=== PATIENT | male | born 1970 | race Caucasian/White ===

== ENCOUNTER 2017-03-16 11:16 | Inpatient (IN) | payer MEDICAID ==
[~2017-03-16] VITALS: Ht 170.2 cm; Wt 72.9 kg
[2017-03-16] MEDS ORDERED: SODIUM CHLORIDE 0.9% 1,000 ML IV ONE (12:45)
[2017-03-16] MEDS ORDERED: PIPERACILLIN-TAZOB 3.375GM 100 ML IV ONE (12:45)
[2017-03-16] MEDS ORDERED: KETOROLAC TROMETH 30 MG/ML 1ML VIAL IV ONE (12:45)
[2017-03-16] MEDS ORDERED: VANCOMYCIN 1GM/250ML D5W 250 ML IV ONE (12:45)
[2017-03-16 13:30] LABS: Basophils # (auto) 0.1 uL; Basophils % (auto) 0.4 % (0.0-2.0); CONDITION Y; Eosinophils # (auto) 0.1 uL; Eosinophils % (auto) 0.9 % (0.0-7.0); Hematocrit 39.7 % (41.0-53.0); Hemoglobin 13.6 g/dL (13.5-17.5); Lymphocytes # (auto) 1.7 uL; Lymphocytes % (auto) 12.7 % (10.0-50.0); Mean Corpuscular Hgb Conc. 34.3 g/dL (32.0-36.0); Mean Corpuscular Volume 90.1 fL (80.0-100.0); Mean Platelet Volume 7.4 fL (7.4-10.4); Monocytes # (auto) 0.9 uL; Monocytes % (auto) 7.1 % (0.0-12.0); Neutrophils # (auto) 10.4 uL; Neutrophils % (auto) 78.9 % (37.0-80.0); Platelet Count (auto) 380 10^3/uL (140-450); Red Cell Distribution Width 12.9 % (11.6-16.0); White Blood Cell 13.1 10^3/uL (4.4-10.8)
[2017-03-16 13:45] LABS: Albumin 3.9 g/dL (3.4-5.0); Anion Gap 12 (5-15); Aspartate Aminotransferase 46 U/L (15-37); BUN/Creatinine Ratio 14.2; Blood Urea Nitrogen 27 mg/dL (7-18); Calcium 9.2 mg/dL (8.5-10.1); Carbon Dioxide 24 mmol/L (21-32); Chloride 103 mmol/L (98-107); GFR African American 50 mL/min; GFR Non-African American 41 mL/min; Glucose 101 mg/dL (74-106); Potassium 3.6 mmol/L (3.5-5.1); Sodium 139 mmol/L (136-145)
[2017-03-16 13:48] LABS: Alkaline Phosphatase 53 U/L (45-117); Bilirubin, Total 0.6 mg/dL (0.2-1.0); Total Protein 7.3 g/dL (6.4-8.2)
[2017-03-16] MEDS ORDERED: TEMAZEPAM 15 MG CAP PO PRN (14:30)
[2017-03-16] MEDS ORDERED: NITROGLYCERIN 0.4 MG SL TAB SL PRN (14:30)
[2017-03-16] MEDS ORDERED: MORPHINE SULF INJ 2 MG/ML SYRINGE 1ML IV PRN (14:30)
[2017-03-16] MEDS ORDERED: ACETAMINOPHEN 500 MG TAB PO PRN (14:30)
[2017-03-16] MEDS ORDERED: LORazepam 0.5 MG TAB PO PRN (14:30)
[2017-03-16] MEDS ORDERED: PROMETHAZINE HCL 25 MG/ML 1ML IV PRN (14:30)
[2017-03-16] MEDS ORDERED: LACTULOSE 20Gm/30ML SOLN PO PRN (14:30)
[2017-03-16 15:04] LABS: INR 0.95 (0.9-1.15); Partial Thromboplastin Time 31.2 sec (22.64-33.71); Prothrombin Time 10.3 sec (9.37-12.3)
[2017-03-16] MEDS: SODIUM CHLORIDE 0.9% 1,000 ML IV SCH ×2 (15:59→23:27)
[2017-03-16 18:39] LABS: Urine Bilirubin Negative (Negative); Urine Blood TRACE /uL (Negative); Urine Ca Oxalate Crystal FEW (None Seen); Urine Color Yellow (Yellow); Urine Glucose Normal (Normal); Urine Hyaline Cast MANY /lpf (0 - 2); Urine Ketone Negative (Negative); Urine Mucus FEW (None Seen); Urine Nitrite Negative (Negative); Urine RBC 36 /hpf (0 - 3); Urine Squamous Epithelial Cell FEW /hpf (<5)
[2017-03-16 20:00] VITALS: BP 142/92
[2017-03-16 20:10] VITALS: BP 142/92
[2017-03-16] MEDS: HYDROcodone-ACET 5/325MG TAB PO PRN (20:15)
[2017-03-16] MEDS: CLINDAMYCIN 600MG IV 50 ML IV SCH (21:13)
[2017-03-17] VITALS (7 sets, daily range): BP systolic 122–136; BP diastolic 75–92
[2017-03-17] MEDS: MORPHINE SULF INJ 2 MG/ML SYRINGE 1ML IV PRN ×3 (05:13→13:33)
[2017-03-17] MEDS: CLINDAMYCIN 600MG IV 50 ML IV SCH ×3 (05:13→21:15)
[2017-03-17] MEDS: SODIUM CHLORIDE 0.9% 1,000 ML IV SCH ×3 (05:51→19:38)
[2017-03-17 06:17] LABS: Basophils # (auto) 0 uL; Basophils % (auto) 0.5 % (0.0-2.0); CONDITION AutoValidated; Eosinophils # (auto) 0.3 uL; Eosinophils % (auto) 4.4 % (0.0-7.0); Hematocrit 36.5 % (41.0-53.0); Hemoglobin 12.4 g/dL (13.5-17.5); Lymphocytes % (auto) 29.3 % (10.0-50.0); Mean Corpuscular Hemoglobin 30.9 pg (28.0-32.0); Mean Corpuscular Volume 90.9 fL (80.0-100.0); Mean Platelet Volume 7.6 fL (7.4-10.4); Monocytes # (auto) 0.6 uL; Monocytes % (auto) 8.4 % (0.0-12.0); Neutrophils % (auto) 57.4 % (37.0-80.0); Platelet Count (auto) 342 10^3/uL (140-450)
[2017-03-17 06:32] LABS: Albumin 3.1 g/dL (3.4-5.0); Bilirubin, Total 0.4 mg/dL (0.2-1.0); Calcium 8.4 mg/dL (8.5-10.1); Potassium 3.8 mmol/L (3.5-5.1); Total Protein 5.9 g/dL (6.4-8.2)
[2017-03-17] MEDS: cefTRIAXone 1GM/50ML D5W 50 ML IV SCH (10:07)
[2017-03-17] MEDS: HYDROcodone-ACET 5/325MG TAB PO PRN (21:14)
[2017-03-18] MEDS: SODIUM CHLORIDE 0.9% 1,000 ML IV SCH (03:11)
[2017-03-18 05:02] VITALS: BP 144/97
[2017-03-18] MEDS: CLINDAMYCIN 600MG IV 50 ML IV SCH (05:32)
[2017-03-18 07:03] LABS: Basophils # (auto) 0 uL; Basophils % (auto) 0.4 % (0.0-2.0); CONDITION AutoValidated; Eosinophils # (auto) 0.3 uL; Eosinophils % (auto) 3.5 % (0.0-7.0); Hematocrit 36.2 % (41.0-53.0); Hemoglobin 12.2 g/dL (13.5-17.5); Lymphocytes # (auto) 1.7 uL; Lymphocytes % (auto) 22.6 % (10.0-50.0); Mean Corpuscular Hemoglobin 30.7 pg (28.0-32.0); Mean Corpuscular Hgb Conc. 33.6 g/dL (32.0-36.0); Mean Corpuscular Volume 91.3 fL (80.0-100.0); Mean Platelet Volume 7.6 fL (7.4-10.4); Monocytes # (auto) 0.4 uL; Monocytes % (auto) 5.8 % (0.0-12.0); Neutrophils % (auto) 67.7 % (37.0-80.0); Platelet Count (auto) 344 10^3/uL (140-450); Red Cell Distribution Width 12.9 % (11.6-16.0); White Blood Cell 7.4 10^3/uL (4.4-10.8)
[2017-03-18 07:40] LABS: BUN/Creatinine Ratio 13.8; Calcium 8.2 mg/dL (8.5-10.1); Potassium 3.9 mmol/L (3.5-5.1)
[2017-03-18] MEDS: cefTRIAXone 1GM/50ML D5W 50 ML IV SCH (09:00)
[2017-03-18 09:02] VITALS: BP 144/97
[2017-03-18 09:20] VITALS: BP 144/86
== END 2017-03-18 09:45 | disposition home or self-care (01) | DRG 460 ==
LOC: ER 11:16 → TELE 11:17 → TELE-E-ADS 17:34 → TELE-EAST 18:36
PROVIDERS: ADMIT Internal Medicine; ATTEND Internal Medicine
DX: N17.9 Acute kidney failure, unspecified (principal); E44.0 Moderate protein-calorie malnutrition; L03.115 Cellulitis of right lower limb; N18.9 Chronic kidney disease, unspecified; Z68.25 Body mass index [BMI] 25.0-25.9, adult; E86.0 Dehydration; K59.00 Constipation, unspecified; Z59.0 Homelessness; Z83.3 Family history of diabetes mellitus; Z88.8 Allergy status to other drugs, medicaments and biological substances; Z71.89 Other specified counseling; L03.116 Cellulitis of left lower limb; R10.9 Unspecified abdominal pain; S90.822A Blister (nonthermal), left foot, initial encounter; S90.821A Blister (nonthermal), right foot, initial encounter; X58.XXXA Exposure to other specified factors, initial encounter; Y93.89 Activity, other specified; Y92.89 Other specified places as the place of occurrence of the external cause; Y99.8 Other external cause status
CPT/HCPCS: 36415; 73630; 74176; 80048; 80053; 80307; 80320; 81001; 85025; 85610; 85652; 85730; 87040; 96361; 96365; 96367; J0696; J2543; J3490

== ENCOUNTER 2017-07-20 15:12 | Emergency (ER) | payer MEDICAID ==
[~2017-07-20] VITALS: Ht 170.2 cm; Wt 68.0 kg
[2017-07-20] MEDS ORDERED: cefTRIAXone SOD 1,000 MG VL IM ONE (17:00)
[2017-07-20] MEDS ORDERED: KETOROLAC TROMETH 60MG/2ML VIAL IM ONE (17:00)
[2017-07-20 17:13] VITALS: BP 138/88
== END 2017-07-20 17:03 | disposition home or self-care (01) ==
LOC: ER 15:23
DX: S90.425A Blister (nonthermal), left lesser toe(s), initial encounter (principal); F12.10 Cannabis abuse, uncomplicated; Z59.0 Homelessness; Z88.8 Allergy status to other drugs, medicaments and biological substances; S90.424A Blister (nonthermal), right lesser toe(s), initial encounter; X58.XXXA Exposure to other specified factors, initial encounter; Y93.89 Activity, other specified; Y99.8 Other external cause status; Y92.89 Other specified places as the place of occurrence of the external cause
CPT/HCPCS: 96372; 99284; J0696; J1885

== ENCOUNTER 2017-12-18 03:30 | Emergency (ER) | payer MEDICAID ==
[~2017-12-18] VITALS: Ht 170.2 cm; Wt 67.1 kg
[2017-12-18] MEDS ORDERED: KETOROLAC TROMETH 60MG/2ML VIAL IM ONE (07:45)
[2017-12-18 07:47] LABS: Basophils # (auto) 0.1 uL; Basophils % (auto) 0.9 % (0.0-2.0); Eosinophils # (auto) 0.2 uL; Eosinophils % (auto) 2.3 % (0.0-7.0); Hematocrit 36.4 % (41.0-53.0); Hemoglobin 12.5 g/dL (13.5-17.5); Lymphocytes # (auto) 1.8 uL; Lymphocytes % (auto) 20.7 % (10.0-50.0); Mean Corpuscular Hemoglobin 31.4 pg (28.0-32.0); Mean Corpuscular Hgb Conc. 34.3 g/dL (32.0-36.0); Mean Corpuscular Volume 91.4 fL (80.0-100.0); Monocytes # (auto) 0.7 uL; Monocytes % (auto) 8.6 % (0.0-12.0); Neutrophils # (auto) 5.8 uL; Neutrophils % (auto) 67.5 % (37.0-80.0); Nucleated Red Blood Cells % 0.1 %; Platelet Count (auto) 396 10^3/uL (140-450); Red Blood Cells 3.98 10^6/uL (4.5-5.90); Red Cell Distribution Width 13.9 % (11.8-14.3); White Blood Cell 8.5 10^3/uL (4.4-10.8)
[2017-12-18 08:12] LABS: Albumin 3.5 g/dL (3.4-5.0); BUN/Creatinine Ratio 16.7; Bilirubin, Total 0.3 mg/dL (0.2-1.0); Calcium 8.3 mg/dL (8.5-10.1); Potassium 3.6 mmol/L (3.5-5.1)
[2017-12-18 09:11] VITALS: BP 138/93
== END 2017-12-18 09:25 | disposition home or self-care (01) ==
LOC: ER 03:33
DX: S86.911A Strain of unspecified muscle(s) and tendon(s) at lower leg level, right leg, initial encounter (principal); X58.XXXA Exposure to other specified factors, initial encounter; Y93.89 Activity, other specified; Y92.89 Other specified places as the place of occurrence of the external cause; Y99.8 Other external cause status; F17.210 Nicotine dependence, cigarettes, uncomplicated; F12.10 Cannabis abuse, uncomplicated; Z59.0 Homelessness; Z88.7 Allergy status to serum and vaccine
CPT/HCPCS: 36415; 80053; 85025; 93971; 96372; 99285; J1885

== ENCOUNTER 2019-01-05 04:42 | Emergency (ER) | payer MEDICAID ==
[~2019-01-05] VITALS: Ht 172.7 cm; Wt 74.8 kg
[2019-01-05 05:56] LABS: Basophils # (auto) 0 uL; Eosinophils # (auto) 0.2 uL; Hemoglobin 8.6 g/dL (13.5-17.5); Monocytes # (auto) 0.7 uL; Monocytes % (auto) 10.7 % (0.0-12.0); Neutrophils # (auto) 4.8 uL; White Blood Cell 6.8 10^3/uL (4.4-10.8)
[2019-01-05 05:58] LABS: Basophils % (auto) 0.6 % (0.0-2.0); Eosinophils % (auto) 3.3 % (0.0-7.0); Hematocrit 25.3 % (41.0-53.0); Lymphocytes % (auto) 15.3 % (10.0-50.0); Mean Corpuscular Hemoglobin 30.5 pg (28.0-32.0); Mean Corpuscular Hgb Conc. 33.9 g/dL (32.0-36.0); Mean Corpuscular Volume 90.1 fL (80.0-100.0); Neutrophils % (auto) 70.1 % (37.0-80.0); Nucleated Red Blood Cells % 0.1 %; Platelet Count (auto) 645 10^3/uL (140-450); Red Blood Cells 2.81 10^6/uL (4.5-5.90); Red Cell Distribution Width 15.6 % (11.8-14.3)
[2019-01-05 06:13] LABS: Albumin 2.9 g/dL (3.4-5.0); Anion Gap 6 (5-15); Blood Urea Nitrogen 8 mg/dL (7-18); Calcium 8.4 mg/dL (8.5-10.1); Carbon Dioxide 25 mmol/L (21-32); Chloride 106 mmol/L (98-107); Glucose 93 mg/dL (74-106); Potassium 3.3 mmol/L (3.5-5.1); Sodium 137 mmol/L (136-145)
[2019-01-05 06:17] LABS: Alanine Aminotransferase 18 U/L (16-61); Alkaline Phosphatase 268 U/L (45-117); Aspartate Aminotransferase 10 U/L (15-37); BUN/Creatinine Ratio 15.7; Bilirubin, Total 0.4 mg/dL (0.2-1.0); Blood Alcohol < 3.0 mg/dL (0-5); GFR African American 225 mL/min; GFR Non-African American 186 mL/min; Total Protein 6.2 g/dL (6.4-8.2)
[2019-01-05 08:21] LABS: Urine Bacteria NONE SEEN /hpf (None Seen); Urine Blood Negative /uL (Negative); Urine Specific Gravity 1.004 (1.001-1.035); Urine WBC <1 /hpf (0 - 3)
[2019-01-05 08:31] LABS: Alcohol, Urine < 3.0 mg/dL (0-5); Amphetamine Screen, Urine NEGATIVE (NEGATIVE); Barbiturate Scree,Urine NEGATIVE (NEGATIVE); Benzodiazephine Screen, Urine NEGATIVE (NEGATIVE); Cannabinoid Screen, Urine POSITIVE (NEGATIVE); Cocaine Screen, Urine NEGATIVE (NEGATIVE); Opiate Scree,Urine NEGATIVE (NEGATIVE); Phencyclidine Screen, Urine NEGATIVE (NEGATIVE)
[2019-01-05 10:15] VITALS: BP 152/57
== END 2019-01-05 10:52 | disposition home or self-care (01) ==
LOC: ER 04:42
DX: S42.201A Unspecified fracture of upper end of right humerus, initial encounter for closed fracture (principal); S46.811A Strain of other muscles, fascia and tendons at shoulder and upper arm level, right arm, initial encounter; F17.210 Nicotine dependence, cigarettes, uncomplicated; F12.10 Cannabis abuse, uncomplicated; F15.10 Other stimulant abuse, uncomplicated; Z59.0 Homelessness; V09.20XA Pedestrian injured in traffic accident involving unspecified motor vehicles, initial encounter; Y93.89 Activity, other specified; Y92.89 Other specified places as the place of occurrence of the external cause; Y99.8 Other external cause status
CPT/HCPCS: 29105; 36415; 73030; 73060; 73090; 73130; 80053; 80307; 80320; 81001; 85025; 93971

== ENCOUNTER 2020-08-10 21:26 | Inpatient (IN) | payer MEDICAID ==
[~2020-08-10] VITALS: Ht 175.3 cm; Wt 54.4 kg
[2020-08-10] MEDS ORDERED: ASPirin 81 mg TAB PO ONE (22:15)
[2020-08-10 23:02] LABS: Hematocrit 40.6 % (41.0-53.0); Red Cell Distribution Width 14.9 % (11.8-14.3)
[2020-08-10 23:04] LABS: Hemoglobin 13.4 g/dL (13.5-17.5); Mean Corpuscular Hgb Conc. 33.1 g/dL (32.0-36.0); Mean Corpuscular Volume 90.5 fL (80.0-100.0); Platelet Count (auto) 497 10^3/uL (140-450); Red Blood Cells 4.48 10^6/uL (4.5-5.90); White Blood Cell 10.3 10^3/uL (4.4-10.8)
[2020-08-10 23:07] LABS: Band Neutrophils % (manual) 0; Basophils % (manual) 0 (0.0-2.0); Blast Cells 0; Eosinophils % (manual) 0 (0-7); Metamyelocytes % 0; Myelocytes % 0; Promyelocytes % 0; Reactive Lymphocytes 0
[2020-08-10 23:19] LABS: Albumin 2.5 g/dL (3.4-5.0); BUN/Creatinine Ratio 18.1; Calcium 8.4 mg/dL (8.5-10.1); Magnesium 1.8 mg/dL (1.6-2.6)
[2020-08-10 23:24] LABS: Total Protein 6.3 g/dL (6.4-8.2)
[2020-08-10 23:30] LABS: INR 1.28 (0.9-1.15); Partial Thromboplastin Time 30.1 sec (23.0-31.2)
[2020-08-10] MEDS ORDERED: IOHEXOL 350 MG/ML 100ML IJ ONE (23:39)
[2020-08-10] MEDS ORDERED: VANCOMYCIN 1GM/250ML 250 ML IV ONE (23:45)
[2020-08-10] MEDS ORDERED: PIPERACILLIN-TAZOB 3.375GM 100 ML IV ONE (23:45)
[2020-08-11] VITALS (7 sets, daily range): BP systolic 95–140; BP diastolic 64–83
[2020-08-11 00:03] LABS: Lactic Acid w/Reflex 2.9 mmol/L (0.4-2.0)
[2020-08-11 00:56] LABS: Lymphocytes % (manual) 12 (10.0-50.0)
[2020-08-11 00:57] LABS: Monocytes % (manual) 5 (0-12)
[2020-08-11] MEDS ORDERED: NITROGLYCERIN 0.4 MG SL TAB SL PRN (04:15)
[2020-08-11] MEDS ORDERED: ONDANSETRON HCL 4 MG/2 ML VIAL IV PRN (04:15)
[2020-08-11] MEDS ORDERED: MORPHINE SULF INJ 2 MG/ML SYRINGE 1ML IV PRN (04:15)
[2020-08-11] MEDS ORDERED: ACETAMINOPHEN 325 MG TAB PO PRN (04:15)
[2020-08-11] MEDS ORDERED: TEMAZEPAM 15 MG CAP PO PRN (04:15)
[2020-08-11] MEDS: FUROSEMIDE 20 MG/2 ML VIAL IV SCH ×3 (04:37→18:00)
[2020-08-11 05:07] LABS: Amphetamine Screen, Urine POSITIVE (NEGATIVE); Barbiturate Scree,Urine NEGATIVE (NEGATIVE); Benzodiazephine Screen, Urine NEGATIVE (NEGATIVE); Cannabinoid Screen, Urine NEGATIVE (NEGATIVE); Cocaine Screen, Urine NEGATIVE (NEGATIVE); Opiate Scree,Urine NEGATIVE (NEGATIVE); Phencyclidine Screen, Urine NEGATIVE (NEGATIVE)
[2020-08-11 05:42] LABS: Urine Bacteria FEW /hpf (None Seen); Urine Blood Negative /uL (Negative); Urine Hyaline Cast MOD /lpf (0 - 2); Urine Mucus FEW (None Seen); Urine Specific Gravity > 1.050 (1.001-1.035); Urine WBC 1 /hpf (0 - 3)
[2020-08-11] MEDS ORDERED: ALBUTEROL SULF HFA 90MCG INH 200DOSE IN SCH (06:00)
--- NOTE | 2020-08-11 06:00 | NUR ---
Telemetry admit from ER RONNELL MONTENEGRO admitted to Telemetry unit after SBAR received. Patient oriented to TERRI LIRA, RN primary RN, unit, room, bed, and unit policies regarding patient care and visiting hours. Patient now on continuous telemetry monitoring, tele box #1 and telemetry reading on arrival to unit is [id number]. Patient placed on bedside oxygen, weighed by bedscale and encouraged to call if they need something. All questions and concerns addressed, patient verbalized understanding.
[2020-08-11] MEDS: FAMOTIDINE 20 MG TAB PO SCH ×2 (09:43→22:35)
[2020-08-11] MEDS: ASPirin 81 mg TAB PO SCH (09:43)
[2020-08-11] MEDS: ENOXAPARIN SOD 40 MG/0.4 ML SYRINGE SC SCH (09:45)
[2020-08-11] MEDS: CARVEDILOL 3.125 MG TAB PO SCH ×2 (09:45→22:34)
[2020-08-11] MEDS: LISINOPRIL 5 MG TAB PO SCH (10:00)
[2020-08-11] MEDS ORDERED: BUDESONIDE (INHALATION) 180 MCG IH IN SCH (10:00)
[2020-08-11] MEDS ORDERED: ZINC SULFATE 220mg CAP or TAB PO SCH (10:00)
[2020-08-11] MEDS ORDERED: ASCORBIC ACID 1,000 MG TAB PO SCH (10:00)
[2020-08-11] MEDS ORDERED: DOXYCYCLINE 100MG/250ML 250 ML IV SCH (10:00)
[2020-08-11] MEDS ORDERED: DexAMETHasone SOD PHOS 10MG/1ML VIAL INJ IV SCH (10:00)
[2020-08-11] MEDS ORDERED: CHOLECALCIFEROL (VITD3) 2,000 UNIT CAP PO SCH (10:00)
[2020-08-11 10:09] LABS: Magnesium 1.7 mg/dL (1.6-2.6)
[2020-08-11 10:18] LABS: CRP High Sensitivity 2.11 mg/dL (< 0.3)
--- NOTE | 2020-08-11 11:41 | NUR ---
at bedside MD Virgen at bedside aware of patient's status including VS, pt refused BP meds as ordered and refusing IV abx. Patient did not finish infusing IV abx as ordered because he states "is making him worse" and MD Virgen aware. Cont care
--- NOTE | 2020-08-11 11:57 | NUR ---
Assessment Patient is a 49-year-old male who is alert and oriented. Regarding social service consult for homeless. Patient states he is not homeless and lives home alone in the city of [place]. Patient states he can care for his own ADL's and functioned independently. Patient refused to answer any other questions. Addendum: 08/11/20 at 1205 by KRYS ZAVALA Amended: Links added.
--- NOTE | 2020-08-11 13:49 | NUR ---
Patient removing tele box multiple times. After multiple attempts to place it back, pt removed it completely and refuses to have it put back. Patient instructed regarding need for tele monitor including increased HR noted he verbalized understanding but continues to refuse yelling "you guys are fucking making things worse, I'm gona try something different". Tele monitor cleaned and will send back to satellite project site monitor. MD Virgen paged to notify, voicemail left. No acute distress or sob noted.
--- NOTE | 2020-08-11 14:00 | NUR ---
Tele monitor returned to ICU as patient continues to refuse to have it put back. MD Virgen paged to notify.
[2020-08-11] MEDS ORDERED: ALBUTEROL SULF 2.5 MG/0.5ML(0.5%) NEB SOLN NEB PRN (15:15)
--- NOTE | 2020-08-11 19:00 | NUR ---
Patient care endorsed to Yandy moralez. Patient removed IV, catheter noted intact and sitting on bedside table. No bleeding noted from site. No acute distress or sob noted. Patient PCR negative and will be transferred to room 223B.
--- NOTE | 2020-08-11 19:50 | NUR ---
Report/SBAR Report/SBAR given to nurse Velásquez. Nurse made aware that patient is without IV or telemonitor.
--- NOTE | 2020-08-11 19:59 | NUR ---
Patient Transferred Patient transferred via wheelchair with personal belongings. Patient tolerated well.
--- NOTE | 2020-08-11 20:00 | NUR ---
Patient arrived to room 223B Patient transported by wheelchair and ambulated to the bed. Patient is A&Ox4, respirations even and non-labored at this time. VS: T 97.9, GA 106, RR 19, SP02 99%, BP 100/83. Discussed POC with patient who verbalized understanding. Patient refused to change into a gown and wanted to wear his own clothes stating that he wanted to stay warm if he left the room. Gown left bedside at this time. Patient had removed his IV prior to his arrival to the room. Safety precautions in place, bed in lowest locked position with 2 side rails up, call light within reach.
--- NOTE | 2020-08-11 22:50 | NUR ---
Patient downstairs to smoke Advised patient of the risks and dangers to his medical condition and informed him of the hospital's policy. The patient read and signed the Informed Consent For Smoking AMA and stated that he was still going downstairs to smoke. Patient sat in a wheelchair and wheeled himself to the elevator and left the floor.
--- NOTE | 2020-08-11 23:10 | NUR ---
PT FOUND BY [facility] RESPIRATORY DEPARTMENT DOOR, TACHYPNEIC IN WHEELCHAIR. ASKED PT IS HE WAS OK HE STATED "NO, I WENT DOWN TO SMOKE". ASKED HIM WHERE HIS ROOM WAS LOCATED AT HE SAID "TWO SOMETHING". ASKED TO SEE PTS WRISTBAND, PT SHOWED ME AND THIS RT RECOGNIZED NAME AND WHEELED PT TO HIS ROOM. PT APPEARS SOB AND HAS PRN TXS, SUGGESTED PT TAKE ONE PT AGREED. COMMUNICATED PT FINDINGS TO TAYLOR ARIAS. MED NEB TX GIVEN WITHOUT ADVERSE REACTION. POX ON RA 93-94% HR IN 100S. RR 20S. WILL CONTINUE TO MONITOR.
--- NOTE | 2020-08-11 23:19 | NUR ---
RT bedside/patient returned to room Patient back to the floor, RT stated that she found him in the hallway unsure of his room number and breathing heavily. He was assisted back to his room and stated that he would not be going downstairs to smoke again.
[2020-08-12 03:01] VITALS: BP 107/72
--- NOTE | 2020-08-12 06:33 | NUR ---
IV insertion IV access obtained, via clean sterile technique by inserting 20 gauge catheter at right upper arm after 1 attempt. IV secured properly. No trauma to site. Patient tolerated well.
[2020-08-12] MEDS: FUROSEMIDE 20 MG/2 ML VIAL IV SCH ×2 (06:45→11:21)
--- NOTE | 2020-08-12 07:29 | NUR ---
Closing shift note Patient resting, respirations even and non-labored without s/s of distress at this time. Endorsed care to day shift RN.
[2020-08-12 07:32] LABS: Basophils # (auto) 0 10 ^3/uL (0-0.2); Basophils % (auto) 0.1 % (0.0-2.0); Eosinophils # (auto) 0 10 ^3/uL (0-0.8); Hematocrit 38.9 % (41.0-53.0); Hemoglobin 12.3 g/dL (13.5-17.5); Lymphocytes # (auto) 0.7 10 ^3/uL (0.4-5.4); Lymphocytes % (auto) 7.3 % (10.0-50.0); Mean Corpuscular Hemoglobin 28.8 pg (28.0-32.0); Mean Corpuscular Hgb Conc. 31.7 g/dL (32.0-36.0); Mean Corpuscular Volume 90.9 fL (80.0-100.0); Monocytes # (auto) 0.7 10 ^3/uL (0-1.3); Monocytes % (auto) 7.5 % (0.0-12.0); Neutrophils # (auto) 8.1 10 ^3/uL (1.6-8.6); Neutrophils % (auto) 85.1 % (37.0-80.0); Nucleated Red Blood Cells % 0.2 %; Platelet Count (auto) 423 10^3/uL (140-450); Red Blood Cells 4.28 10^6/uL (4.5-5.90); Red Cell Distribution Width 14.8 % (11.8-14.3); White Blood Cell 9.5 10^3/uL (4.4-10.8)
[2020-08-12 08:08] LABS: BUN/Creatinine Ratio 22.4; Calcium 8.1 mg/dL (8.5-10.1); Potassium 4.4 mmol/L (3.5-5.1)
[2020-08-12 09:00] VITALS: BP 111/79
[2020-08-12] MEDS ORDERED: levoFLOXacin 500 MG TAB PO SCH (10:00)
[2020-08-12] MEDS: ASPirin 81 mg TAB PO SCH (11:21)
[2020-08-12] MEDS: ENOXAPARIN SOD 40 MG/0.4 ML SYRINGE SC SCH (11:21)
[2020-08-12] MEDS: FAMOTIDINE 20 MG TAB PO SCH ×2 (11:21→22:23)
[2020-08-12] MEDS: LISINOPRIL 5 MG TAB PO SCH (11:22)
[2020-08-12] MEDS: CARVEDILOL 3.125 MG TAB PO SCH ×2 (11:23→22:22)
[2020-08-12] MEDS ORDERED: LISI-275 PO (11:24)
[2020-08-12] MEDS ORDERED: ALBUAER3 IN (11:24)
[2020-08-12] MEDS ORDERED: FURO1TAB33 PO (11:24)
[2020-08-12] MEDS ORDERED: LEVO-28 PO (11:24)
[2020-08-12] MEDS ORDERED: CAR3125T PO (11:24)
[2020-08-12] MEDS: MAGNESIUM SULFATE 1GM/100ML 100 ML IV SCH ×2 (12:00→13:00)
[2020-08-12 12:30] VITALS: BP 112/78
--- NOTE | 2020-08-12 15:08 | NUR ---
REFUSED IV PATIENT STATED "TAKE OUT MY IV I DONT WANT MEDICATION IN MY ARM". EXPLAINED THE NEED FOR AN IV WHILE IN THE HOSPITAL. PATIENT VERBALIZED UNDERSTANDING HOWEVER STILL REFUSED IV. IV removal IV DC'd with clean sterile technique, catheter fully intact. Pressure dressing applied to site. Patient tolerated well.
[2020-08-12 16:44] VITALS: BP 105/64
--- NOTE | 2020-08-12 19:14 | NUR ---
DISCHARGE TOMORROW AM ENDORSED TO NIGHT RN AM SHIFT RN FOR 08/13/20 P[address]TA[address] SR BRADY IN THE MORNING TO CLEAR THE PATIENT FOR DISCHARGE.
--- NOTE | 2020-08-12 19:30 | NUR ---
Opening Shift Note Assumed patient care from Day Shift RN. Patient is AOx4 and currently in the bathroom. Knocked on patient bathroom door and asked if everything is okay, patient responded "yes, I'm okay, I'm just going to the bathroom." Told patient I will be back in a few minutes to check on him and patient verbally answered "Ok." Patient told to call if he needs any help. Will continue to monitor.
--- NOTE | 2020-08-12 19:53 | NUR ---
Respiratory note: PT ASSESSED FOR PRN TX AT THIS TIME. HEART RATE 93. RESPIRATORY RATE 16. SPO2 98% ON ROOM AIR. BREATH SOUNDS CLEAR T/O. PT DENIES ANY RESPIRATORY DISTRESS AT THIS TIME. PT INSTRUCTED TO HAVE RESPIRATORY CALLED IF THEY FEEL SOB OR FEEL DIFFICULTY BREATHING.
--- NOTE | 2020-08-12 20:28 | NUR ---
AMA to Smoke Patient left unit via wheelchair to smoke at this time. Patient given a mask and taken to elevator.
[2020-08-12 22:00] VITALS: BP 94/62
[2020-08-13 05:00] VITALS: BP 80/61
[2020-08-13 05:18] VITALS: BP 88/61
[2020-08-13] MEDS: FUROSEMIDE 20 MG/2 ML VIAL IV SCH (06:00)
--- NOTE | 2020-08-13 06:11 | NUR ---
Patient Complains He is Not Feeling Well Upon entering patient's room, patient was moaning and saying, " I don't feel good, my stomach hurts and I haven't pooped in 4 days." I asked the patient if he has any other symptoms and he got agitated and said, " That delroy who came in and took my vitals woke me up and now my stomach hurts." He also said, " I'm still going to have breakfast." I educated patient that if his stomach hurts he may want to hold off on eating and I will talk to the doctor for further directions. Patient said, " I don't want to go home, I don't feel well." Will contact Dr. Kady Fournier.
--- NOTE | 2020-08-13 06:21 | NUR ---
Contacted [facility] No orders received at this time. Made aware that patient does not want to leave and is not "feeling good." Also, let exchange know patient refuses IV for any IV medications.
--- NOTE | 2020-08-13 06:52 | NUR ---
PT ASSESSED BY RT, PT HR 91 BPM, RR16, SPO2 95% ON RA, PT STATES HE HAS NO RESPIRATORY DISTRESS AT THIS TIME, PT BILATERAL BREATH SOUNDS ARE CLEAR, IF PT HAS ANY ACUTE CHANGE IN CONDITION RT WILL RESPOND WITH APPROPRIATE THERAPY
--- NOTE | 2020-08-13 07:29 | NUR ---
PAGED DR BRADY PER Elizabeth SANCHEZ'S NOTE FOR CLEARANCE FOR DISCHARGE TODAY.
[2020-08-13 09:00] VITALS: BP_SYST 94; BP_SYST 98; BP_DIAS 53; BP_DIAS 71
--- NOTE | 2020-08-13 09:42 | NUR ---
DISCHARGE INSTRUCTIONS GIVEN TO PATIENT. HE REFUSED TO LISTEN TO INSTRUCTIONS. MEDICATIONS GIVEN TO PATIENT THAT WERE FILLED AT [facility]. REQUESTING A BUS PASS. CALLED [employer] FOR BUS PASS.
== END 2020-08-13 10:00 | disposition home or self-care (01) | DRG 139 ==
LOC: EDBD 21:26 → ER 21:33 → TELE 21:34 → TELE-EAST 08-11 05:45 → TELE-CENTR 08-11 20:08
PROVIDERS: ADMIT Nurse Practitioner; ATTEND Internal Medicine
DX: J18.9 Pneumonia, unspecified organism (principal); E43 Unspecified severe protein-calorie malnutrition; I50.21 Acute systolic (congestive) heart failure; I11.0 Hypertensive heart disease with heart failure; I27.21 Secondary pulmonary arterial hypertension; Z20.828 Contact with and (suspected) exposure to other viral communicable diseases; I25.10 Atherosclerotic heart disease of native coronary artery without angina pectoris; K70.30 Alcoholic cirrhosis of liver without ascites; F17.210 Nicotine dependence, cigarettes, uncomplicated; F15.10 Other stimulant abuse, uncomplicated; F19.10 Other psychoactive substance abuse, uncomplicated; Z88.7 Allergy status to serum and vaccine; Z59.0 Homelessness; Z82.49 Family history of ischemic heart disease and other diseases of the circulatory system; Z83.3 Family history of diabetes mellitus; Z86.73 Personal history of transient ischemic attack (TIA), and cerebral infarction without residual deficits; Z91.19 Patient's noncompliance with other medical treatment and regimen
CPT/HCPCS: 36415; 71045; 71275; 80048; 80053; 80307; 81001; 82140; 82728; 83605; 83615; 83735; 83880; 84443; 84484; 85007; 85025; 85027; 85379; 85610; 85730; 86141; 87040; 87426; 93005; 93306; 94640; 96365; G0378; J1100; J2543; J3490

== ENCOUNTER 2020-08-14 18:20 | Inpatient (IN) | payer MEDICAID ==
[~2020-08-14] VITALS: Ht 170.2 cm; Wt 68.4 kg
[~2020-08-14 18:20] MED LIST: ALBUAER3 IN; CAR3125T PO; FURO1TAB33 PO; LEVO-28 PO; LISI-275 PO
[2020-08-14] MEDS ORDERED: FUROSEMIDE 40 MG/4 ML VIAL IV ONE (19:15)
[2020-08-14 20:23] LABS: Basophils # (auto) 0 10 ^3/uL (0-0.2); Basophils % (auto) 0.1 % (0.0-2.0); Eosinophils # (auto) 0 10 ^3/uL (0-0.8); Eosinophils % (auto) 0.3 % (0.0-7.0); Hematocrit 37.8 % (41.0-53.0); Lymphocytes # (auto) 1.1 10 ^3/uL (0.4-5.4); Lymphocytes % (auto) 11.5 % (10.0-50.0); Mean Corpuscular Hemoglobin 28.6 pg (28.0-32.0); Mean Corpuscular Hgb Conc. 31.8 g/dL (32.0-36.0); Monocytes # (auto) 0.7 10 ^3/uL (0-1.3); Monocytes % (auto) 7.3 % (0.0-12.0); Neutrophils # (auto) 7.6 10 ^3/uL (1.6-8.6); Neutrophils % (auto) 80.8 % (37.0-80.0); Platelet Count (auto) 438 10^3/uL (140-450); White Blood Cell 9.4 10^3/uL (4.4-10.8)
[2020-08-14 20:38] LABS: INR 1.26 (0.9-1.15); Partial Thromboplastin Time 32.4 sec (23.0-31.2)
[2020-08-14 20:39] LABS: Albumin 2.4 g/dL (3.4-5.0); BUN/Creatinine Ratio 26.7; Magnesium 1.7 mg/dL (1.6-2.6); Potassium 4.7 mmol/L (3.5-5.1)
[2020-08-14 20:44] LABS: Bilirubin, Total 0.6 mg/dL (0.2-1.0); Total Protein 6.2 g/dL (6.4-8.2)
[2020-08-14] MEDS ORDERED: PIPERACILLIN-TAZOB 3.375GM 100 ML IV ONE (21:30)
[2020-08-14] MEDS ORDERED: DexAMETHasone INJECTION 10 MG in D5W 5% 50 ML IV ONE (21:30)
[2020-08-14] MEDS ORDERED: DexAMETHasone SOD PHOS 10MG/1ML VIAL INJ ONE (21:48)
[2020-08-14 22:25] LABS: Urine WBC None Seen /hpf (0 - 3)
[2020-08-14 22:42] LABS: Urine Bacteria NONE SEEN /hpf (None Seen); Urine Blood Negative /uL (Negative); Urine Mucus FEW (None Seen)
[2020-08-14 22:59] LABS: Alcohol, Urine < 3.0 mg/dL (0-10); Amphetamine Screen, Urine POSITIVE (NEGATIVE); Barbiturate Scree,Urine NEGATIVE (NEGATIVE); Benzodiazephine Screen, Urine NEGATIVE (NEGATIVE); Cannabinoid Screen, Urine NEGATIVE (NEGATIVE); Cocaine Screen, Urine NEGATIVE (NEGATIVE); Opiate Scree,Urine NEGATIVE (NEGATIVE); Phencyclidine Screen, Urine NEGATIVE (NEGATIVE)
[2020-08-15] VITALS (7 sets, daily range): BP systolic 106–127; BP diastolic 66–85
[2020-08-15] MEDS ORDERED: ONDANSETRON HCL 4 MG/2 ML VIAL IV PRN
[2020-08-15] MEDS ORDERED: MORPHINE SULF INJ 2 MG/ML SYRINGE 1ML IV PRN
[2020-08-15] MEDS ORDERED: DOCUSATE SOD 100 MG CAP PO PRN
[2020-08-15] MEDS ORDERED: NITROGLYCERIN 0.4 MG SL TAB SL PRN
[2020-08-15] MEDS ORDERED: ACETAMINOPHEN 325 MG TAB PO PRN
[2020-08-15] MEDS ORDERED: LORazepam 2MG/ML-1ML VIAL ONE (01:08)
[2020-08-15] MEDS ORDERED: LORazepam 2MG/ML-1ML VIAL IV ONE (01:15)
[2020-08-15] MEDS: SODIUM CHLOR 0.9% PF (SALINE LOCK) 10ML VIAL/SYR IV SCH ×3 (05:38→21:29)
[2020-08-15] MEDS ORDERED: DIVA250T51 PO (07:58)
[2020-08-15] MEDS: FUROSEMIDE 40 MG/4 ML VIAL IV SCH (09:15)
[2020-08-15] MEDS: MULTIPLE VITAMIN TAB PO SCH (09:16)
[2020-08-15] MEDS: ASCORBIC ACID 500 MG TAB PO SCH ×2 (09:16→21:29)
[2020-08-15] MEDS: FAMOTIDINE 20 MG TAB PO SCH ×2 (09:16→21:29)
[2020-08-15] MEDS: ZINC SULFATE 220mg CAP or TAB PO SCH (09:16)
[2020-08-15] MEDS: ENOXAPARIN SOD 40 MG/0.4 ML SYRINGE SC SCH (09:17)
[2020-08-15 09:41] LABS: Basophils # (auto) 0.2 10 ^3/uL (0-0.2); Basophils % (auto) 1.4 % (0.0-2.0); Eosinophils # (auto) 0 10 ^3/uL (0-0.8); Hematocrit 39.7 % (41.0-53.0); Hemoglobin 12.9 g/dL (13.5-17.5); Lymphocytes # (auto) 0.5 10 ^3/uL (0.4-5.4); Lymphocytes % (auto) 4.4 % (10.0-50.0); Mean Corpuscular Hemoglobin 29.3 pg (28.0-32.0); Mean Corpuscular Hgb Conc. 32.6 g/dL (32.0-36.0); Mean Corpuscular Volume 89.9 fL (80.0-100.0); Monocytes # (auto) 0.3 10 ^3/uL (0-1.3); Monocytes % (auto) 2.7 % (0.0-12.0); Neutrophils # (auto) 9.8 10 ^3/uL (1.6-8.6); Neutrophils % (auto) 91.5 % (37.0-80.0); Nucleated Red Blood Cells % 0.3 %; Platelet Count (auto) 428 10^3/uL (140-450); Red Blood Cells 4.41 10^6/uL (4.5-5.90); Red Cell Distribution Width 15.1 % (11.8-14.3); White Blood Cell 10.8 10^3/uL (4.4-10.8)
[2020-08-15 09:59] LABS: Albumin 2.5 g/dL (3.4-5.0); Calcium 8.2 mg/dL (8.5-10.1); Potassium 3.7 mmol/L (3.5-5.1)
[2020-08-15] MEDS: AZITHROMYCIN 500MG/ 250ML 250 ML IV SCH (10:00)
[2020-08-15 10:02] LABS: BUN/Creatinine Ratio 23.3; Bilirubin, Total 0.6 mg/dL (0.2-1.0); Total Protein 6.5 g/dL (6.4-8.2)
[2020-08-15] MEDS: NICOTINE 21MG/24 HR TOPICAL PATCH TD SCH (21:29)
[2020-08-16] MEDS: MORPHINE SULFATE 4 MG/ML SYR/VIAL IV PRN (03:30)
[2020-08-16 05:00] VITALS: BP 118/84
[2020-08-16] MEDS: SODIUM CHLOR 0.9% PF (SALINE LOCK) 10ML VIAL/SYR IV SCH ×3 (06:26→21:48)
[2020-08-16 09:00] VITALS: BP 108/82
[2020-08-16] MEDS: NICOTINE 21MG/24 HR TOPICAL PATCH TD SCH (09:30)
[2020-08-16] MEDS: FUROSEMIDE 40 MG/4 ML VIAL IV SCH (09:40)
[2020-08-16] MEDS: MULTIPLE VITAMIN TAB PO SCH (09:40)
[2020-08-16] MEDS: AZITHROMYCIN 500MG/ 250ML 250 ML IV SCH (09:40)
[2020-08-16] MEDS: FAMOTIDINE 20 MG TAB PO SCH ×2 (09:40→21:48)
[2020-08-16] MEDS: ZINC SULFATE 220mg CAP or TAB PO SCH (09:40)
[2020-08-16] MEDS: ENOXAPARIN SOD 40 MG/0.4 ML SYRINGE SC SCH (09:41)
[2020-08-16] MEDS: ASCORBIC ACID 500 MG TAB PO SCH ×2 (09:41→21:48)
[2020-08-16 13:00] VITALS: BP 119/82
[2020-08-16] MEDS: HYDROcodone-ACET 5/325MG TAB PO PRN ×2 (15:30→21:47)
[2020-08-16 17:00] VITALS: BP 130/84
[2020-08-16 22:03] VITALS: BP 107/68
[2020-08-17 04:23] VITALS: BP 109/64
[2020-08-17] MEDS: SODIUM CHLOR 0.9% PF (SALINE LOCK) 10ML VIAL/SYR IV SCH ×3 (04:23→22:00)
[2020-08-17 08:30] VITALS: BP 120/79
[2020-08-17] MEDS: ZINC SULFATE 220mg CAP or TAB PO SCH (10:00)
[2020-08-17] MEDS: NICOTINE 21MG/24 HR TOPICAL PATCH TD SCH (10:00)
[2020-08-17] MEDS: AZITHROMYCIN 500MG/ 250ML 250 ML IV SCH (10:00)
[2020-08-17] MEDS: ENOXAPARIN SOD 40 MG/0.4 ML SYRINGE SC SCH (10:00)
[2020-08-17] MEDS: ASCORBIC ACID 500 MG TAB PO SCH ×2 (10:00→22:00)
[2020-08-17] MEDS: MULTIPLE VITAMIN TAB PO SCH (10:00)
[2020-08-17] MEDS: FAMOTIDINE 20 MG TAB PO SCH ×2 (10:00→22:00)
[2020-08-17] MEDS: FUROSEMIDE 40 MG/4 ML VIAL IV SCH (10:08)
[2020-08-17] MEDS: HYDROcodone-ACET 5/325MG TAB PO PRN (10:40)
[2020-08-17 17:00] VITALS: BP 103/71
[2020-08-18] MEDS: SODIUM CHLOR 0.9% PF (SALINE LOCK) 10ML VIAL/SYR IV SCH ×3 (06:00→22:00)
[2020-08-18] MEDS: FUROSEMIDE 40 MG/4 ML VIAL IV SCH (10:00)
[2020-08-18] MEDS: MULTIPLE VITAMIN TAB PO SCH (10:00)
[2020-08-18] MEDS: ENOXAPARIN SOD 40 MG/0.4 ML SYRINGE SC SCH (10:00)
[2020-08-18] MEDS: FAMOTIDINE 20 MG TAB PO SCH ×2 (10:00→22:00)
[2020-08-18] MEDS: NICOTINE 21MG/24 HR TOPICAL PATCH TD SCH (10:00)
[2020-08-18] MEDS: ASCORBIC ACID 500 MG TAB PO SCH ×2 (10:00→22:00)
[2020-08-18] MEDS: AZITHROMYCIN 500MG/ 250ML 250 ML IV SCH (10:00)
[2020-08-18] MEDS: ZINC SULFATE 220mg CAP or TAB PO SCH (10:00)
[2020-08-18 13:00] VITALS: BP 122/78
[2020-08-18] MEDS: MORPHINE SULFATE 4 MG/ML SYR/VIAL IV PRN (13:45)
[2020-08-18] MEDS: DOXYCYCLINE 100MG/250ML 250 ML IV SCH (14:45)
[2020-08-18 16:07] VITALS: BP 122/78
[2020-08-18] MEDS: IPRATROPIUM BROM 0.5 MG/2.5ML INH SOL NEB SCH ×2 (18:34→22:23)
[2020-08-18] MEDS: ALBUTEROL SULF 2.5 MG/0.5ML(0.5%) NEB SOLN NEB SCH ×2 (18:34→22:23)
[2020-08-18] MEDS ORDERED: HALOPERIDOL LACTATE 5 MG/ML INJ VIAL IM ONE (21:45)
[2020-08-18 22:00] VITALS: BP 110/76
[2020-08-18] MEDS ORDERED: ALBUTEROL SULF 2.5 MG/0.5ML(0.5%) NEB SOLN NEB PRN (22:00)
[2020-08-18] MEDS ORDERED: IPRATROPIUM BROM 0.5 MG/2.5ML INH SOL NEB PRN (22:00)
[2020-08-18] MEDS: HYDROcodone-ACET 5/325MG TAB PO PRN (22:44)
[2020-08-18] MEDS ORDERED: ZOLPIDEM TARTRATE 5 MG TAB PO ONE (23:15)
[2020-08-19] MEDS: IPRATROPIUM BROM 0.5 MG/2.5ML INH SOL NEB SCH ×6 (02:00→22:40)
[2020-08-19] MEDS: ALBUTEROL SULF 2.5 MG/0.5ML(0.5%) NEB SOLN NEB SCH ×6 (02:00→22:40)
[2020-08-19] MEDS: DOXYCYCLINE 100MG/250ML 250 ML IV SCH ×2 (02:45→14:45)
[2020-08-19 05:00] VITALS: BP 94/65
[2020-08-19] MEDS: SODIUM CHLOR 0.9% PF (SALINE LOCK) 10ML VIAL/SYR IV SCH ×3 (05:44→21:46)
[2020-08-19] MEDS: MULTIPLE VITAMIN TAB PO SCH (10:00)
[2020-08-19] MEDS: FAMOTIDINE 20 MG TAB PO SCH ×2 (10:00→21:47)
[2020-08-19] MEDS: FUROSEMIDE 40 MG/4 ML VIAL IV SCH (10:00)
[2020-08-19] MEDS: ENOXAPARIN SOD 40 MG/0.4 ML SYRINGE SC SCH (10:00)
[2020-08-19] MEDS: ASCORBIC ACID 500 MG TAB PO SCH ×2 (10:00→21:47)
[2020-08-19] MEDS: ZINC SULFATE 220mg CAP or TAB PO SCH (10:00)
[2020-08-19] MEDS: NICOTINE 21MG/24 HR TOPICAL PATCH TD SCH (10:00)
[2020-08-19] MEDS: LORazepam 2MG/ML-1ML VIAL IV PRN (10:45)
[2020-08-19] MEDS: HALOPERIDOL LACTATE 5 MG/ML INJ VIAL IM PRN (10:45)
[2020-08-19] MEDS: MORPHINE SULFATE 4 MG/ML SYR/VIAL IV PRN (16:40)
[2020-08-19 17:01] VITALS: BP 115/69
[2020-08-19 22:00] VITALS: BP 118/70
[2020-08-20] MEDS: ALBUTEROL SULF 2.5 MG/0.5ML(0.5%) NEB SOLN NEB SCH ×6 (02:23→22:00)
[2020-08-20] MEDS: IPRATROPIUM BROM 0.5 MG/2.5ML INH SOL NEB SCH ×6 (02:23→22:00)
[2020-08-20] MEDS: DOXYCYCLINE 100MG/250ML 250 ML IV SCH ×2 (03:30→16:20)
[2020-08-20 05:00] VITALS: BP 98/68
[2020-08-20] MEDS: LORazepam 2MG/ML-1ML VIAL IV PRN (05:08)
[2020-08-20] MEDS: HALOPERIDOL LACTATE 5 MG/ML INJ VIAL IM PRN (05:09)
[2020-08-20] MEDS: SODIUM CHLOR 0.9% PF (SALINE LOCK) 10ML VIAL/SYR IV SCH ×3 (05:11→21:57)
[2020-08-20 08:00] VITALS: BP 91/68
[2020-08-20 09:00] VITALS: BP 91/68
[2020-08-20] MEDS: FAMOTIDINE 20 MG TAB PO SCH ×2 (10:00→21:57)
[2020-08-20] MEDS: NICOTINE 21MG/24 HR TOPICAL PATCH TD SCH (10:00)
[2020-08-20] MEDS: ZINC SULFATE 220mg CAP or TAB PO SCH (10:00)
[2020-08-20] MEDS: FUROSEMIDE 40 MG/4 ML VIAL IV SCH (10:00)
[2020-08-20] MEDS: ENOXAPARIN SOD 40 MG/0.4 ML SYRINGE SC SCH (10:00)
[2020-08-20] MEDS: ASCORBIC ACID 500 MG TAB PO SCH ×2 (10:00→21:58)
[2020-08-20] MEDS: MULTIPLE VITAMIN TAB PO SCH (10:00)
[2020-08-20] MEDS: HYDROcodone-ACET 5/325MG TAB PO PRN ×2 (12:15→21:46)
[2020-08-20 13:00] VITALS: BP 97/55
[2020-08-20 17:00] VITALS: BP 98/76
[2020-08-20 22:00] VITALS: BP 106/66
[2020-08-21] MEDS: IPRATROPIUM BROM 0.5 MG/2.5ML INH SOL NEB SCH ×4 (02:00→10:09)
[2020-08-21] MEDS: ALBUTEROL SULF 2.5 MG/0.5ML(0.5%) NEB SOLN NEB SCH ×4 (02:00→10:09)
[2020-08-21] MEDS: DOXYCYCLINE 100MG/250ML 250 ML IV SCH (02:45)
[2020-08-21 05:00] VITALS: BP 98/68
[2020-08-21] MEDS: SODIUM CHLOR 0.9% PF (SALINE LOCK) 10ML VIAL/SYR IV SCH (05:03)
[2020-08-21 08:26] VITALS: BP 98/68
== END 2020-08-21 10:08 | disposition left against medical advice (07) | DRG 137 ==
LOC: ER 18:20 → EDBD 18:20 → TELE 18:21 → TELE-EAST 08-15 03:20 → TELE-WESTW 08-15 14:48
PROVIDERS: ADMIT Nurse Practitioner Family; ATTEND Internal Medicine
DX: J15.212 Pneumonia due to Methicillin resistant Staphylococcus aureus (principal); J96.01 Acute respiratory failure with hypoxia; I42.9 Cardiomyopathy, unspecified; I27.20 Pulmonary hypertension, unspecified; R04.2 Hemoptysis; E88.09 Other disorders of plasma-protein metabolism, not elsewhere classified; K70.30 Alcoholic cirrhosis of liver without ascites; R79.89 Other specified abnormal findings of blood chemistry; J98.11 Atelectasis; F15.10 Other stimulant abuse, uncomplicated; F91.9 Conduct disorder, unspecified; Z20.828 Contact with and (suspected) exposure to other viral communicable diseases; Z59.0 Homelessness; Z78.9 Other specified health status; I11.0 Hypertensive heart disease with heart failure; Z82.49 Family history of ischemic heart disease and other diseases of the circulatory system; Z83.3 Family history of diabetes mellitus; Z91.14 Patient's other noncompliance with medication regimen; Z91.19 Patient's noncompliance with other medical treatment and regimen; Z88.7 Allergy status to serum and vaccine; I50.23 Acute on chronic systolic (congestive) heart failure; Z86.73 Personal history of transient ischemic attack (TIA), and cerebral infarction without residual deficits
CPT/HCPCS: 36415; 36600; 71045; 80053; 80307; 80320; 81001; 82728; 82805; 83735; 83880; 84484; 85025; 85610; 85730; 86141; 86703; 87070; 87077; 87081; 87186; 87205; 87426; 87804; 93005; 94640; 94727; 96365; 96366; 96375; 99291; G0378; J1100; J2543; J3490; J7060